=== PATIENT | male | born 1940 | race Hispanic/Latino ===

== ENCOUNTER 2019-11-08 19:17 | Emergency (ER) | payer MEDICARE, OTHER ==
[~2019-11-08] VITALS: Ht 165.1 cm; Wt 65.8 kg
[~2019-11-08 19:17] MED LIST: LIPITOR; UNKNOWN BP MED; Z.0.PLAVIX75 MG
--- OUTSIDE RECORDS SUMMARY | 2019-11-08 19:19 | XMS REPORT ---
Author [facility] Address Unknown Phone Unavailable Care Team Providers Care Reserves Clerk Name Role Phone Unavailable Unavailable Payers Payer Name Policy Type Policy Number Effective Date Expiration Date Problems This patient has no known problems. Allergies, Adverse Reactions, Alerts Allergy Name Allergy Type Status Severity Reaction(s) Onset Date Inactive Date Treating Clinician Comments No Known Allergies DA Active U 2018-03-09 00:00:00 Medications This patient has no known medications.
--- NOTE | 2019-11-08 19:27 | NUR ---
RHINO ROCKET PROCEDURE STARTED- DR ALVARADO AND WALT DAVILA PERFORMING PROCEDURE Addendum: 11/08/19 at 1930 by ACANO 6CC AIR ADDED TO RHINO ROCKET TO LEFT NOSTRIL- PATIENT TOLERATED PROCEDURE WELL. NO COMPLICATIONS
[2019-11-08] MEDS ORDERED: OXYMETAZOLINE HCL 0.05% NAS 1 SPRAY BTL ONE ×2 (19:28→19:30)
[2019-11-08 19:33] VITALS: BP 146/58
--- NOTE | 2019-11-08 19:35 | NUR ---
pt to lobby after insertion of rhino rocket with on side. pt to wait 20 minutes to ensure no bleeding. noted yelling for assistance from lobby bathroom. pt noted on floor upon nursing staff walking in. pt states she assisted patient to bathroom floor and denies patient hitting head or other body part. . pt awake and alert, no visible injury to head or other body part upon nursing assessment. Dr beach and donna position description manager also assessed patient. no injury noted on assessment. pt able to stand c minimal assistance. pt to room 10 via wc. vs assessed and recorded. ekg performed, iv started c blood drawn per md orders. Addendum: 11/08/19 at 2015 by SABRINA pt to lobby after insertion of rhino rocket. pt to wait 20 minutes to ensure no bleeding. sitting c patient in lobby. noted yelling for assistance from lobby bathroom. pt noted on floor upon nursing staff walking in. states that pt became weak and she assisted patient to bathroom floor. denies patient hitting head or other body part. pt awake and alert, no visible injury to head or other body part upon nursing assessment. Dr beach and donna position description manager also assessed patient c no injury noted. pt able to stand c minimal assistance. to room 10 via wc and placed on bedside monitor. vs assessed and recorded. ekg performed, iv started c blood drawn per md orders.
[2019-11-08 20:09] LABS: BASOPHILS # (AUTO) 0.1 (0.0-0.1); BASOPHILS % 0.9 % (0.0-1.0); EOSINOPHILS # (AUTO) 0.3 (0.0-0.4); EOSINOPHILS % 3.4 % (0.0-6.0); HEMATOCRIT 37.5 % (38.2-49.6); LYMPHOCYTES # (AUTO) 3.2 (1.0-3.2); LYMPHOCYTES % 41.9 % (18.0-39.1); MEAN CORPUSCULAR HEMOGLOBIN 32.4 pg (28-32); MEAN CORPUSCULAR HGB CONC 34.7 g/dL (31-35); MEAN CORPUSCULAR VOLUME 93.5 fL (81-99); MONOCYTES # (AUTO) 0.5 (0.2-0.8); NEUTROPHILS # (AUTO) 3.5 (2.1-6.9); NEUTROPHILS % 46.5 % (38.7-80.0); PLATELET COUNT 221 x10e3/uL (140-360); RED BLOOD COUNT 4.01 x10e6/uL (4.3-5.7); RED CELL DISTRIBUTION WIDTH 12.8 % (11.7-14.4)
[2019-11-08 20:21] LABS: INR 2.13; PROTHROMBIN TIME 25.4 seconds (11.9-14.5)
[2019-11-08 20:32] LABS: ALBUMIN 4.3 g/dL (3.5-5.0); ALBUMIN/GLOBULIN RATIO 1.4 (0.8-2.0); ANION GAP 11.5 mmol/L (8-16); CALCIUM 9.8 mg/dL (8.4-10.2); CREATININE, SERUM 1.29 mg/dL (0.72-1.25); POTASSIUM 3.5 mmol/L (3.5-5.1)
[2019-11-08 20:38] LABS: CREATINE KINASE MB 1.7 ng/mL (0-5.0)
== END 2019-11-08 21:10 | disposition home or self-care (01) ==
LOC: ER 19:17
DX: R04.0 Epistaxis (principal)
CPT/HCPCS: 36415; 80053; 82550; 82553; 84484; 85025; 85610; 86850; 86900; 93005; 99282

== ENCOUNTER 2020-12-26 17:47 | Emergency (ER) | payer MEDICARE ==
[~2020-12-26] VITALS: Ht 165.1 cm; Wt 65.8 kg
[2020-12-26] MEDS ORDERED: ACETAMINOPHEN 325 MG TAB PO STA (18:04)
[2020-12-26] MEDS ORDERED: SODIUM CHLORIDE 0.9% 1000ML 1,000 ML IV STA (18:07)
[2020-12-26 18:34] LABS: BASOPHILS # (AUTO) 0.1 (0.0-0.1); BASOPHILS % 0.6 % (0.0-1.0); EOSINOPHILS % 0.5 % (0.0-6.0); HEMATOCRIT 30.5 % (38.2-49.6); LYMPHOCYTES # (AUTO) 0.8 (1.0-3.2); LYMPHOCYTES % 10.6 % (18.0-39.1); MEAN CORPUSCULAR HEMOGLOBIN 30.6 pg (28-32); MEAN CORPUSCULAR HGB CONC 32.8 g/dL (31-35); MEAN CORPUSCULAR VOLUME 93.3 fL (81-99); MONOCYTES # (AUTO) 0.9 (0.2-0.8); MONOCYTES % 11.7 % (4.4-11.3); NEUTROPHILS % 76.2 % (38.7-80.0); PLATELET COUNT 204 x10e3/uL (140-360); RED BLOOD COUNT 3.27 x10e6/uL (4.3-5.7); RED CELL DISTRIBUTION WIDTH 13.5 % (11.7-14.4)
[2020-12-26 18:51] LABS: ALBUMIN 3.9 g/dL (3.5-5.0); ALBUMIN/GLOBULIN RATIO 1.1 (0.8-2.0); ANION GAP 14.8 mmol/L (8-16); CALCIUM 9.3 mg/dL (8.4-10.2); CREATININE, SERUM 1.31 mg/dL (0.72-1.25); POTASSIUM 3.8 mmol/L (3.5-5.1)
[2020-12-26] MEDS ORDERED: LEVOFLOXACIN250 MG PO (20:37)
[2020-12-26] MEDS ORDERED: LEVOFLOXACIN 250 MG TAB PO STA (20:38)
== END 2020-12-26 21:25 | disposition home or self-care (01) ==
LOC: ER 17:58
DX: R50.9 Fever, unspecified (principal); N28.9 Disorder of kidney and ureter, unspecified; R53.81 Other malaise; I10 Essential (primary) hypertension; F03.90 Unspecified dementia, unspecified severity, without behavioral disturbance, psychotic disturbance, mood disturbance, and anxiety; E78.00 Pure hypercholesterolemia, unspecified; Z95.0 Presence of cardiac pacemaker
CPT/HCPCS: 36415; 71045; 80053; 83880; 85025; 93005; 99284; J7030